=== PATIENT | male | born 1965 | race Two or more races ===

== ENCOUNTER 2021-06-03 14:36 | Emergency (ER) | payer OTHER ==
[~2021-06-03] VITALS: Ht 162.6 cm; Wt 66.2 kg
[2021-06-03] MEDS ORDERED: diphenhydrAMINE HCL 50 MG/ML VIAL ONE (14:57)
[2021-06-03] MEDS ORDERED: ONDANSETRON HCL/PF 4 MG/2 ML VIAL ONE (14:57)
[2021-06-03] MEDS ORDERED: IV NS 0.9% 1,000 ML BAG IV ONE (15:00)
[2021-06-03] MEDS ORDERED: ONDANSETRON HCL/PF 4 MG/2 ML VIAL IVP ONE (15:00)
[2021-06-03] MEDS ORDERED: diphenhydrAMINE HCL 50 MG/ML VIAL IV ONE (15:00)
--- NOTE | 2021-06-03 15:07 | NUR ---
chetan, from [employer], had syncopal episode, +nausea vomiting, BG 171. On room air, had projectile vomitng in the patient's room. Kept comfortable, will continue to monitor accordingly.
--- NOTE | 2021-06-03 15:16 | NUR ---
PT TAKEN TO CT VIA MARGIE
[2021-06-03 15:19] LABS: BASOPHILS # (AUTO) 0.1 K/uL (0.0-0.2); BASOPHILS % (AUTO) 0.7 % (0.0-2.0); EOSINOPHILS % (AUTO) 2.6 % (0.0-6.0); HEMATOCRIT 41 % (39-51); HEMOGLOBIN 13.8 g/dL (13.5-17.5); LYMPHOCYTES # (AUTO) 4.4 K/uL (0.8-4.8); LYMPHOCYTES % (AUTO) 30.3 % (20.0-44.0); MEAN CORPUSCULAR HGB CONC 33 g/dl (31.0-36.0); MEAN CORPUSCULAR VOLUME 91 fL (80-96); MONOCYTES % (AUTO) 6.6 % (2.0-12.0); NEUTROPHILS # (AUTO) 8.6 K/uL (1.8-8.9); NEUTROPHILS % (AUTO) 59.8 % (43.0-81.0); PLATELET COUNT (AUTO) 288 K/uL (150-450); RED BLOOD CELL COUNT(AUTO) 4.55 MIL/uL (4.5-6.0); WHITE BLOOD COUNT (AUTO) 14.5 K/uL (4.3-11.0)
[2021-06-03 15:36] LABS: ALANINE AMINOTRANSFERASE 29 U/L (12-78); ALBUMIN 3.7 g/dL (3.4-5.0); ALKALINE PHOSPHATASE 96 U/L (46-116); ASPARTATE AMINOTRANSFERASE 24 U/L (15-37); BILIRUBIN,DIRECT 0.2 mg/dL (0.0-0.2); BILIRUBIN,TOTAL 0.9 mg/dL (0.2-1.0); CALCIUM, SERUM 8.7 mg/dL (8.5-10.1); CARBON DIOXIDE 24 mmol/L (21-32); CHLORIDE 102 mmol/L (98-107); CREATININE 1.1 mg/dL (0.6-1.3); GLUCOSE 143 mg/dL (74-106); POTASSIUM 3.1 mmol/L (3.5-5.1); SODIUM SERUM 136 mmol/L (136-145); TOTAL PROTEIN, SERUM 7.7 g/dL (6.4-8.2); UREA NITROGEN, BLOOD 14 mg/dL (7-18)
--- NOTE | 2021-06-03 15:51 | NUR ---
URINE COLLECTED AND SENT
[2021-06-03 16:05] LABS: BILIRUBIN,URINE NEGATIVE (NEGATIVE); COLOR,URINE YELLOW (YELLOW); LEUKOCYTE ESTERASE ,URINE NEGATIVE (NEGATIVE); NITRITE, URINE NEGATIVE (NEGATIVE); PROTEIN,URINE NEGATIVE (NEGATIVE); UGLUCOSE NEGATIVE (NEGATIVE)
[2021-06-03 16:17] LABS: ALCOHOL, BLOOD < 3 mg/dL (0-0)
[2021-06-03 16:18] LABS: SERUM AMMONIA 30 umol/L (11-32)
--- NOTE | 2021-06-03 16:20 | NUR ---
MOVE SHEET SUBMITTED AND CALLED FOR ICU BED.
--- NOTE | 2021-06-03 16:24 | NUR ---
CALLED [facility] [phone] PER PONCHO
[2021-06-03] MEDS ORDERED: LEVETIRACETAM (500MG) 1,000 MG in IV NS 0.9% 100 ML IV SCH (16:30)
[2021-06-03] MEDS ORDERED: hydrALAZINE HCL IV 20 MG VIAL IV ONE ×2 (16:30→18:30)
[2021-06-03 16:31] LABS: BACTERIA,URINE Few /HPF (None Seen); RBC,URINE 0-2 /HPF (0-2); SQUAMOUS EPITHELIAL CELL,UR 0-2 /HPF (None Seen); WBC,URINE 0-2 /HPF (0-3)
[2021-06-03] MEDS ORDERED: IV NS 0.9% 250 ML IV ONE (16:32)
[2021-06-03] MEDS ORDERED: IOHEXOL-350 100 ML VIAL IV ONE (16:32)
[2021-06-03] MEDS ORDERED: PROPOFOL 100 ML ONE (17:00)
[2021-06-03] MEDS ORDERED: PROPOFOL 20 ML IV ONE (17:00)
--- NOTE | 2021-06-03 17:00 | NUR ---
DR. CAGE FROM [facility] CALLED WILL CALL BACK TO SPEAK WITH ZO VALLADARES.
--- NOTE | 2021-06-03 17:06 | NUR ---
FAXED FACE SHEET AND CT FINDINGS TO [facility] [phone]
--- NOTE | 2021-06-03 17:16 | NUR ---
CALLED [phone] CEVALLOS [facility] FOR [facility] TO BE PAGED. SPEAKING WITH DR. MONIQUE.
[2021-06-03 17:19] LABS: THYROID STIMULATING HORMONE 2.711 uIU/mL (0.358-3.74)
--- NOTE | 2021-06-03 17:24 | NUR ---
CALLED [employer] TELE NEUROLOGIST IS DR. BRO LOUIS
--- NOTE | 2021-06-03 17:29 | NUR ---
DR. CAGE SPEAKING WITH DR. MONIQUE
[2021-06-03] MEDS ORDERED: PROPOFOL 100 ML IV ONE (17:30)
[2021-06-03] MEDS ORDERED: PROPOFOL 200 MG/20 ML VIAL IV ONE (17:30)
[2021-06-03] MEDS ORDERED: PIPERACILLIN /TAZOBACTAM 3.375 G in IV D5W 50 ML IV ONE (17:30)
--- NOTE | 2021-06-03 17:34 | NUR ---
[facility] CALLED,SPOKE WITH ART RN,REPORT GIVEN,FACESHEET AND CLINICALS FAXED TO [phone] REQUESTED
--- NOTE | 2021-06-03 17:35 | NUR ---
DR MONIQUE ON THE PHONE WITH DR. LOUIS
[2021-06-03] MEDS ORDERED: hydrALAZINE HCL IV 20 MG VIAL ONE ×2 (17:37→17:48)
--- NOTE | 2021-06-03 17:52 | NUR ---
ART CALLED FROM [facility] CURRENT VS 171/116 98 100%
[2021-06-03] MEDS ORDERED: ALTEPLASE IV ONE ×2 (18:00→18:11)
[2021-06-03] MEDS ORDERED: WATER FOR INJECTION STERILE IV ONE ×2 (18:00→18:11)
[2021-06-03] MEDS ORDERED: ALTEPLASE BOLUS DOSE IV ONE (18:00)
--- NOTE | 2021-06-03 18:48 | NUR ---
TRANSPORTATION FROM [facility] ARRIVED, VERBAL REPORT GIVEN TO ART. ART GAVE NUMBER TO CALL TO GIVE REPORT [phone]. PT GOING TO ICU ROOM 1204.
[2021-06-03 18:50] VITALS: BP 131/81
--- NOTE | 2021-06-03 18:51 | NUR ---
[employer] FINISHED PRIOR TO TRANSFER, UNLABLE TO DOCUMENT THAT INFUSION WAS COMPLETES, CANNOT ASSESS UNTIL LATER TIME
--- NOTE | 2021-06-03 19:00 | NUR ---
MAHSA WALLIS AMARILLO [phone]
--- NOTE | 2021-06-03 19:16 | NUR ---
REPORT GIVEN TO GLENNA FROM [facility] ICU ROOM 1204. [phone].
== END 2021-06-03 19:25 | disposition short-term general hospital (02) ==
LOC: ER 14:38
DX: I63.02 Cerebral infarction due to thrombosis of basilar artery (principal); I10 Essential (primary) hypertension; R29.726 NIHSS score 26; E87.6 Hypokalemia; D72.829 Elevated white blood cell count, unspecified; Z20.822 Contact with and (suspected) exposure to COVID-19
CPT/HCPCS: 31500; 36415; 70450; 70496; 70498; 71045 ×2; 80048; 80076; 80307; 80320; 81001; 82140; 82962 ×2; 84443; 84484; 85025; 85730; 87426; 93005; 94799 ×2; 96361; 96365 ×2; 96368; 96375; 99291; C9803; J0360 ×2; J1200; J1953; J2405; J2543; J2704; J2997; J3490; J7030 ×2; J7050; J7060; Q9967; 94002-TC; G0480